=== PATIENT | male | born 1960 | race Caucasian/White ===

== ENCOUNTER 2023-02-20 21:03 | Emergency (ER) | payer OTHER ==
[~2023-02-20] VITALS: Ht 175.3 cm; Wt 118.0 kg
[2023-02-20 21:18] VITALS: BP 159/92; O2SAT 97
[2023-02-20 23:51] VITALS: PULSE 79; RESP 18; TEMP 98.1
== END 2023-02-20 23:56 | disposition home or self-care (01) ==
LOC: ER 21:03
DX: S01.01XD Laceration without foreign body of scalp, subsequent encounter (principal); X58.XXXD Exposure to other specified factors, subsequent encounter
CPT/HCPCS: 99281